=== PATIENT | female | born 1955 | race Caucasian/White ===

== ENCOUNTER 2021-09-21 15:14 | Day surgery (SDC) | payer MEDICARE ==
[2021-09-21] MEDS ORDERED: LIDOCAINE HCL 2% 100 MG/5 ML IJ ONE (15:15)
[2021-09-21] MEDS ORDERED: DUONEB 0.5-3 MG/3 ml Neb IH ONE (16:19)
[2021-09-21 16:23] VITALS: PULSE 66; O2SAT 93
[2021-09-21] MEDS ORDERED: DIPRIVAN 200 MG/20 ML IV ONE ×2 (16:41→16:59)
[2021-09-21] MEDS ORDERED: Lactated Ringers 1,000 ML IV ONE (17:43)
--- NOTE | 2021-09-21 19:41 | XRAY ---
Indication: Bilateral L4-S1 MBB. Intraoperative fluoroscopy provided for 18 seconds. Single digital spot image submitted for interpretation demonstrates posterior needle tips projecting over the expected left and right L4-S1 nerve roots. Correlate with intraoperative findings/report.
--- NOTE | 2021-09-22 08:42 | XRAY ---
18 seconds of fluoroscopy was used in surgery for a bilateral L4-S1 MBB.
== END 2021-09-21 17:40 | disposition home or self-care (01) ==
LOC: SDC-PAIN 15:14
PROVIDERS: ATTEND Psychiatry & Neurology Pain Medicine
DX: M47.816 Spondylosis without myelopathy or radiculopathy, lumbar region (principal); Z79.899 Other long term (current) drug therapy
CPT/HCPCS: 64493; 64494; 72020; 77002; 94640; J2704; A9270-GY

== ENCOUNTER 2021-10-26 11:27 | Day surgery (SDC) | payer MEDICARE ==
[2021-10-26] MEDS ORDERED: BUPIVACAINE 0.5% VIAL IJ ONE (11:28)
[2021-10-26] MEDS ORDERED: DIPRIVAN 200 MG/20 ML IV ONE (13:01)
[2021-10-26] MEDS ORDERED: Lactated Ringers 1,000 ML IV ONE (14:31)
--- NOTE | 2021-10-26 18:10 | XRAY ---
Indication: Left L4-S1 MBB. Intraoperative fluoroscopy provided for 16 seconds. Single digital spot image submitted for interpretation demonstrates posterior needle tips projecting over the expected left L4-S1 nerve roots. Correlate with intraoperative findings/report.
--- NOTE | 2021-10-26 18:33 | XRAY ---
16 seconds of fluoroscopy was used in surgery for a left L4-S1 MBB.
== END 2021-10-26 13:25 | disposition home or self-care (01) ==
LOC: SDC-PAIN 11:27
PROVIDERS: ATTEND Psychiatry & Neurology Pain Medicine
DX: M47.816 Spondylosis without myelopathy or radiculopathy, lumbar region (principal); Z79.899 Other long term (current) drug therapy
CPT/HCPCS: 64493; 64494; 72020; 77002; J2704

== ENCOUNTER 2021-11-16 15:18 | Day surgery (SDC) | payer MEDICARE ==
[2021-11-16] MEDS ORDERED: XYLOCAINE-MPF 1% 5ML SDV IJ ONE (15:19)
[2021-11-16] MEDS ORDERED: Depo-Medrol 40 MG/ML IM ONE (15:19)
[2021-11-16] MEDS ORDERED: Marcaine Mpf 0.5% Vial 30 Ml IJ ONE (15:19)
[2021-11-16] MEDS ORDERED: Pepcid 20 MG VIAL IV ONE (16:26)
[2021-11-16] MEDS ORDERED: SOD CITRATE-CITRIC ACID SOLN ONE (16:27)
[2021-11-16] MEDS ORDERED: Reglan 10 MG/2 ML ONE (16:27)
[2021-11-16] MEDS ORDERED: DUONEB 0.5-3 MG/3 ml Neb IH ONE ×2 (16:33→16:38)
[2021-11-16 16:43] VITALS: PULSE 68; O2SAT 86
[2021-11-16] MEDS ORDERED: Lactated Ringers 1,000 ML IV ONE (17:42)
[2021-11-16] MEDS ORDERED: DIPRIVAN 200 MG/20 ML IV ONE (17:59)
--- NOTE | 2021-11-16 19:45 | XRAY ---
Indication: Left L4-S1 RFA. Intraoperative fluoroscopy provided for 25 seconds. 4digital spot images submitted for interpretation demonstrates posterior needle tips projecting over the expected left L4-S1 nerve roots. Correlate with intraoperative findings/report.
--- NOTE | 2021-11-17 10:58 | XRAY ---
25 seconds of fluoroscopy was used in surgery for a left L4-S1 RFA.
== END 2021-11-16 18:25 | disposition home or self-care (01) ==
LOC: SDC-PAIN 15:18
PROVIDERS: ATTEND Psychiatry & Neurology Pain Medicine
DX: M47.816 Spondylosis without myelopathy or radiculopathy, lumbar region (principal); Z79.899 Other long term (current) drug therapy
CPT/HCPCS: 64635; 64636; 72100; 77002; 94640; J1030; J2704; A9270-GY

== ENCOUNTER 2021-11-23 15:20 | Day surgery (SDC) | payer MEDICARE ==
[2021-11-23] MEDS ORDERED: LIDOCAINE HCL 1% 50 MG/5 ML VL PF IJ ONE (15:21)
[2021-11-23] MEDS ORDERED: Depo-Medrol 40 MG/ML IM ONE (15:21)
[2021-11-23] MEDS ORDERED: BUPIVACAINE 0.5% VIAL IJ ONE (15:21)
[2021-11-23] MEDS ORDERED: PROVENTIL 2.5 MG/3 ML NEB IH ONE ×2 (16:55)
[2021-11-23 17:11] VITALS: PULSE 76; O2SAT 94
[2021-11-23] MEDS ORDERED: DIPRIVAN 200 MG/20 ML IV ONE (17:33)
[2021-11-23] MEDS ORDERED: Lactated Ringers 1,000 ML IV ONE (17:37)
--- NOTE | 2021-11-23 18:44 | XRAY ---
Indication: Right L4-S1 RFA. Intraoperative fluoroscopy provided for 32 seconds. 4 digital spot image submitted for interpretation demonstrates posterior needle tips projecting over the expected right L4-S1 nerve roots. Correlate with intraoperative findings/report.
--- NOTE | 2021-11-24 08:42 | XRAY ---
32 seconds of fluoroscopy was used in surgery for a right L4-S1 RFA.
== END 2021-11-23 17:56 | disposition home or self-care (01) ==
LOC: SDC-PAIN 15:20
PROVIDERS: ATTEND Psychiatry & Neurology Pain Medicine
DX: M47.816 Spondylosis without myelopathy or radiculopathy, lumbar region (principal); Z79.899 Other long term (current) drug therapy
CPT/HCPCS: 64635; 64636; 72100; 77002; 94640; J1030; J2001; J2704; J7609; A9270-GY

== ENCOUNTER 2021-12-28 16:12 | Day surgery (SDC) | payer MEDICARE ==
[2021-12-28] MEDS ORDERED: Xylocaine 1% Vial 30 ML PF IJ ONE (16:13)
[2021-12-28] MEDS ORDERED: Depo-Medrol 40 MG/ML IM ONE (16:13)
[2021-12-28] MEDS ORDERED: Sodium Chloride 0.9(Preservative Free) 10 ML IJ ONE (16:13)
[2021-12-28] MEDS ORDERED: MORPHINE SULFATE 2 MG INJ ONE (18:21)
--- NOTE | 2021-12-28 19:58 | XRAY ---
Indication: Lumbar LOPEZ. Intraoperative fluoroscopy provided for 21 seconds. 2 digital spot images submitted for interpretation demonstrates posterior needle tip projecting posterior to L3-L4 interspace. Small amount of contrast injected for needle tip placement. Correlate with intraoperative findings/report.
--- NOTE | 2021-12-29 08:46 | XRAY ---
21 seconds of fluoroscopy was used in surgery for a lumbar LOPEZ.
== END 2021-12-28 18:35 | disposition home or self-care (01) ==
LOC: SDC-PAIN 16:12
PROVIDERS: ATTEND Psychiatry & Neurology Pain Medicine
DX: M54.16 Radiculopathy, lumbar region (principal); Z79.899 Other long term (current) drug therapy
CPT/HCPCS: 62323; 72100; 77003; J1030; J2001; J2270; Q9966

== ENCOUNTER 2022-03-22 14:45 | Day surgery (SDC) | payer MEDICARE ==
[2022-03-22] MEDS ORDERED: Depo-Medrol 40 MG/ML IM ONE (14:46)
[2022-03-22] MEDS ORDERED: LIDOCAINE HCL 1% 50 MG/5 ML VL PF IJ ONE (14:46)
[2022-03-22] MEDS ORDERED: Sodium Chloride 0.9(Preservative Free) 10 ML IJ ONE (14:46)
[2022-03-22] MEDS ORDERED: Lactated Ringers 1,000 ML IV ONE (17:59)
--- NOTE | 2022-03-22 19:45 | XRAY ---
Indication: Lumbar LOPEZ. Intraoperative fluoroscopy provided for 15 seconds. 2 digital spot images submitted for interpretation demonstrates posterior needle tip projecting posterior to L4-L5 interspace. Small amount of contrast injected for needle tip placement. Correlate with intraoperative findings/report.
--- NOTE | 2022-03-23 10:47 | XRAY ---
15 seconds fluoroscopy time in surgery for lumbar LOPEZ.
== END 2022-03-22 17:24 | disposition home or self-care (01) ==
LOC: SDC-PAIN 14:45
PROVIDERS: ATTEND Psychiatry & Neurology Pain Medicine
DX: M54.16 Radiculopathy, lumbar region (principal); Z79.899 Other long term (current) drug therapy
CPT/HCPCS: 62321; 72100; 77003; J1030; J2001; Q9966

== ENCOUNTER 2022-08-02 14:29 | Day surgery (SDC) | payer MEDICARE ==
[2022-08-02] MEDS ORDERED: Sodium Chloride 0.9(Preservative Free) 10 ML IJ ONE (14:30)
[2022-08-02] MEDS ORDERED: LIDOCAINE HCL 1% 50 MG/5 ML VL PF IJ ONE (14:30)
[2022-08-02] MEDS ORDERED: CEFAZOLIN 2 GM-D5W BAG** 2 GM/50 ML ML IV ONE (14:30)
[2022-08-02] MEDS ORDERED: BACIGUENT 30 GM ONE (17:42)
[2022-08-02] MEDS ORDERED: DIPRIVAN 200 MG/20 ML IV ONE ×3 (17:45→18:23)
[2022-08-02] MEDS ORDERED: Lactated Ringers 1,000 ML IV ONE (18:41)
--- NOTE | 2022-08-02 21:00 | XRAY ---
Indication: Spinal cord stimulator trial. Intraoperative fluoroscopy provided for 4 minutes 30 seconds. 9 digital spot images submitted for interpretation demonstrates introducer needle posterior to thoracolumbar junction interspace. Ultimately, single spinal stimulator lead inserted with the tip positioned midthoracic level. Correlate with intraoperative findings/report.
--- NOTE | 2022-08-03 09:04 | XRAY ---
Four minutes and 30 seconds of fluoroscopy was used in surgery for a spinal cord stimulator trial.
== END 2022-08-02 19:10 | disposition home or self-care (01) ==
LOC: SDC-PAIN 14:29
PROVIDERS: ATTEND Psychiatry & Neurology Pain Medicine
DX: M54.16 Radiculopathy, lumbar region (principal)
CPT/HCPCS: 63650; 72100; 77002; C1778; J0690; J2001; J2704; A9270-GY